=== PATIENT | female | born 1930 | race Caucasian/White ===

== ENCOUNTER 2017-05-06 21:45 | Inpatient (IN) | payer OTHER ==
[~2017-05-06] VITALS: Ht 160 cm; Wt 90.1 kg
[2017-05-06 23:00] LABS: BASOPHIL COUNT 0.1 K/uL (0-0.1); EOSINOPHIL (%) 1.6 % (0-5); EOSINOPHIL COUNT 0.3 K/uL (0-0.3); HEMATOCRIT 31.6 % (36.0-46.0); IMMATURE GRANULOCYTE (%) 1.4 % (0.0-0.7); IMMATURE GRANULOCYTE COUNT 0.3 K/uL; LYMPHOCYTE COUNT 3.3 K/uL (1.0-2.8); MCH 31.7 PG (29.0-34.0); MCHC 33.2 G/DL (30.0-36.0); MCV 95.5 FL (83-99); MEAN PLAT.VOLUME 9.9 uM^3 (9.5-12.4); MONOCYTE (%) 6.3 % (3-12); MONOCYTE COUNT 1.1 K/uL (0-0.8); NEUTROPHIL (%) 71.8 % (45-76); PLATELET COUNT 509 K/uL (156-360); RBC DIS.WIDTH-CV 13.4 % (11.8-14.6); RBC DIS.WIDTH-SD 46.6 % (39-53); RED BLOOD COUNT 3.31 M/uL (3.80-5.20); WHITE BLOOD COUNT 18.1 K/uL (4.1-10.2)
[2017-05-06 23:14] LABS: CHLORIDE 104 mEq/L (99-109); POTASSIUM 4.3 mEq/L (3.7-5.4); SODIUM 140 mEq/L (136-147)
[2017-05-06 23:15] LABS: PROTHROMBIN TIME 11.7 SEC (10.2-12.9)
[2017-05-06 23:16] LABS: GLUCOSE 140 mg/dL (70-99)
[2017-05-06 23:17] LABS: ANION GAP 14 MEQ/L (2-14); PTT 26.6 SEC (25-37)
[2017-05-06 23:19] LABS: GFR ESTIMATE (CALCULATED) 35 mL/min/
[2017-05-06 23:20] LABS: UREA NITROGEN (BUN) 36 mg/dL (9-23)
[2017-05-07] MEDS ORDERED: ALLOPURINOL100 MG PO (01:15)
[2017-05-07] MEDS ORDERED: RESTASIS MULTI5.5 ML BOTH EYES (01:17)
[2017-05-07] MEDS ORDERED: HYDROCHLOROTHIA50 MG PO (01:18)
[2017-05-07] MEDS ORDERED: LISINOPRIL20 MG PO (01:19)
[2017-05-07] MEDS ORDERED: AMLODIPINE BESYL5 MG PO (01:19)
[2017-05-07] MEDS ORDERED: VITAMIN D31000 UNI2 PO (01:20)
[2017-05-07] MEDS ORDERED: ASCORBIC ACID500 M3 PO (01:21)
[2017-05-07] MEDS ORDERED: [UNRECOGNIZED DRUG - OTHER] PO (01:23)
[2017-05-07] MEDS ORDERED: [UNRECOGNIZED DRUG - OTHER] PO (01:26)
[2017-05-07] MEDS ORDERED: ULTIMATE COLON CARE PO (01:28)
[2017-05-07] MEDS ORDERED: COLACE100 MG PO (01:30)
[2017-05-07 03:05] LABS: ADD MIUA? YES; BILIRUBIN NEGATIVE; BLOOD NEGATIVE; COLOR YELLOW ((YELLOW)); GLUCOSE (STRIP) NEGATIVE; KETONES NEGATIVE; LEUKOCYTES LARGE; NITRITE POSITIVE; PROTEIN (STRIP) NEGATIVE; SPECIFIC GRAVITY 1.014 (1.000-1.030); UROBILINOGEN 0.2 MG/DL (0.2-1.0)
[2017-05-07 03:10] LABS: BACTERIA 3+ /HPF; EPITHELIAL CELLS RARE /HPF; MUCUS 1+ /LPF; UCUL ADDED? YES; WHITE BLOOD CELLS TNTC /HPF (0-5)
[2017-05-07 03:34] VITALS: BP 112/57
[2017-05-07 05:55] LABS: METH RESISTANT S AUREUS PCR NEGATIVE (NEGATIVE)
[2017-05-07 05:58] LABS: PROBE CHECK PASS; SPECIMEN PROCESSING CONTROL PASS
[2017-05-07 08:11] VITALS: BP 153/65
[2017-05-07 11:43] VITALS: BP 153/70
[2017-05-07 15:39] VITALS: BP 175/76
[2017-05-07 22:56] VITALS: BP 121/57
[2017-05-08 04:39] VITALS: BP 124/58
[2017-05-08 07:01] LABS: HEMATOCRIT 25.5 % (36.0-46.0); MCV 98.8 FL (83-99)
[2017-05-08 07:11] LABS: ANION GAP 14 MEQ/L (2-14); CHLORIDE 107 MEQ/L (99-109); GLUCOSE 166 mg/dL (70-99); POTASSIUM 5.1 MEQ/L (3.7-5.4); SAMPLE HEMOLYSIS CHECK 0; SAMPLE ICTERIC CHECK 0; SAMPLE LIPEMIA CHECK 0; SODIUM 139 MEQ/L (136-147); UREA NITROGEN (BUN) 38 mg/dL (9-23)
[2017-05-08 07:14] LABS: GFR ESTIMATE (CALCULATED) 24 mL/min/
[2017-05-08 08:13] VITALS: BP 127/61
[2017-05-08 12:16] VITALS: BP 123/53
[2017-05-08 16:38] VITALS: BP 138/69
[2017-05-09] VITALS (12 sets, daily range): BP systolic 121–177; BP diastolic 56–101
[2017-05-09 07:41] LABS: HEMATOCRIT 19.2 % (36.0-46.0)
[2017-05-09 09:34] LABS: ANION GAP 10 MEQ/L (2-14); CHLORIDE 106 MEQ/L (99-109); POTASSIUM 4.4 MEQ/L (3.7-5.4); SAMPLE HEMOLYSIS CHECK 0; SAMPLE ICTERIC CHECK 0; SAMPLE LIPEMIA CHECK 0; SODIUM 138 MEQ/L (136-147)
[2017-05-09 09:40] LABS: GFR ESTIMATE (CALCULATED) 19 mL/min/; GLUCOSE 128 mg/dL (70-99); UREA NITROGEN (BUN) 52 mg/dL (9-23)
[2017-05-09 18:46] LABS: HEMATOCRIT 26.2 % (36.0-46.0); MCV 95.3 FL (83-99)
[2017-05-10 00:12] VITALS: BP 169/74
[2017-05-10 04:00] VITALS: BP 201/71
[2017-05-10 10:03] VITALS: BP 151/66
[2017-05-10 18:08] VITALS: BP 151/66
[2017-05-10 23:22] VITALS: BP 161/70
[2017-05-11 09:34] VITALS: BP 173/78
[2017-05-11 17:00] VITALS: BP 150/86
[2017-05-11 23:21] VITALS: BP 184/77
[2017-05-12 07:48] LABS: BASOPHIL COUNT 0.1 K/uL (0-0.1); EOSINOPHIL (%) 1.5 % (0-5); EOSINOPHIL COUNT 0.3 K/uL (0-0.3); HEMATOCRIT 28.4 % (36.0-46.0); IMMATURE GRANULOCYTE (%) 2.3 % (0.0-0.7); IMMATURE GRANULOCYTE COUNT 0.4 K/uL; INSTRUMENT ABS NEUTROPHIL CT 14.1 K/uL; LYMPHOCYTE COUNT 2.8 K/uL (1.0-2.8); MCH 30.6 PG (29.0-34.0); MCV 95.6 FL (83-99); MEAN PLAT.VOLUME 9.9 uM^3 (9.5-12.4); MONOCYTE COUNT 1.5 K/uL (0-0.8); NEUTROPHIL (%) 73.3 % (45-76); NEUTROPHIL COUNT 14.1 K/uL (1.8-6.4); PLATELET COUNT 397 K/uL (156-360); RBC DIS.WIDTH-CV 14.3 % (11.8-14.6); RBC DIS.WIDTH-SD 47.7 % (39-53); RED BLOOD COUNT 2.97 M/uL (3.80-5.20); WHITE BLOOD COUNT 19.2 K/uL (4.1-10.2)
[2017-05-12 08:24] LABS: ANION GAP 12 MEQ/L (2-14); CHLORIDE 108 MEQ/L (99-109); GFR ESTIMATE (CALCULATED) 56 mL/min/; GLUCOSE 115 mg/dL (70-99); POTASSIUM 3.4 MEQ/L (3.7-5.4); SAMPLE HEMOLYSIS CHECK 0; SAMPLE ICTERIC CHECK 0; SAMPLE LIPEMIA CHECK 0; SODIUM 140 MEQ/L (136-147); UREA NITROGEN (BUN) 37 mg/dL (9-23)
[2017-05-12 08:42] VITALS: BP 190/91
[2017-05-12] MEDS ORDERED: ELIQUIS2.5 MG PO (10:57)
== END 2017-05-12 14:28 | DRG 481 ==
LOC: EME → EDBD 21:45 → EDOF 23:45 → 3EAST 23:45 → ENRESERV 23:48 → 3EAST 05-07 03:16
PROVIDERS: Emergency Medicine; Family Medicine; Orthopaedic Surgery; Physician Assistant
PROC: 0QS736Z Reposition Left Upper Femur with Intramedullary Internal Fixation Device, Percutaneous Approach (ICD-10-PCS; principal; 2017-05-07)
PROC: 5A09357 Assistance with Respiratory Ventilation, Less than 24 Consecutive Hours, Continuous Positive Airway Pressure (ICD-10-PCS; 2017-05-07)
PROC: 30233N1 Transfusion of Nonautologous Red Blood Cells into Peripheral Vein, Percutaneous Approach (ICD-10-PCS; 2017-05-07)
DX: S72.142A Displaced intertrochanteric fracture of left femur, initial encounter for closed fracture (principal); S42.291A Other displaced fracture of upper end of right humerus, initial encounter for closed fracture; N39.0 Urinary tract infection, site not specified; D62 Acute posthemorrhagic anemia; F33.9 Major depressive disorder, recurrent, unspecified; G47.30 Sleep apnea, unspecified; I10 Essential (primary) hypertension; W01.0XXA Fall on same level from slipping, tripping and stumbling without subsequent striking against object, initial encounter; M10.9 Gout, unspecified; R32 Unspecified urinary incontinence; M19.90 Unspecified osteoarthritis, unspecified site; N28.9 Disorder of kidney and ureter, unspecified; Z96.651 Presence of right artificial knee joint; M21.70 Unequal limb length (acquired), unspecified site; E66.9 Obesity, unspecified; Y92.89 Other specified places as the place of occurrence of the external cause; Z90.81 Acquired absence of spleen; Z85.038 Personal history of other malignant neoplasm of large intestine; Z90.49 Acquired absence of other specified parts of digestive tract; Z68.35 Body mass index [BMI] 35.0-35.9, adult; Z88.5 Allergy status to narcotic agent; Z80.8 Family history of malignant neoplasm of other organs or systems; Z82.49 Family history of ischemic heart disease and other diseases of the circulatory system
CPT/HCPCS: 71010; 73030; 73502; 73552; 76000; 80048; 81003; 85014; 85018; 85025; 85610; 85730; 86850; 86900; 86901; 86920; 87077; 87086; 87186; 87641; 93005; 94660; 94799; 97530 GO; 99281; 99285; C1713; J0690; J0696; J1100; J1170; J1940; J2270; J2405; J2710; J3010; J7030; P9016